=== PATIENT | male | born 1970 | race Caucasian/White ===

== ENCOUNTER 2022-08-08 22:20 | Emergency (ER) | payer BC, MEDICAID ==
[2022-08-08] MEDS ORDERED: Labetalol 100 MG Tab PO STA (23:35)
[2022-08-08] MEDS ORDERED: amLODIPine 10 MG Tab PO STA (23:36)
[2022-08-08] MEDS ORDERED: Sodium Chloride 0.9% 1,000 ML IV SCH (23:45)
[2022-08-08 23:50] VITALS: BP 134/88; PULSE 87
[2022-08-09 00:14] LABS: ESTIMATED GFR 104 mL/min (>60)
[2022-08-09] MEDS ORDERED: Potassium Chloride 20 MEQ Tab.ER PO ONE (00:27)
[2022-08-09] MEDS ORDERED: Iopamidol 612 MG/ML 100 ML Bottle IVPUSH ONE (00:51)
== END 2022-08-09 02:26 ==
LOC: JD.ED 22:20
DX: R07.89 Other chest pain (principal); R10.84 Generalized abdominal pain; G89.29 Other chronic pain; E87.6 Hypokalemia; I10 Essential (primary) hypertension; E66.9 Obesity, unspecified; Z68.30 Body mass index [BMI] 30.0-30.9, adult; Z86.16 Personal history of COVID-19
CPT/HCPCS: 36415; 71045; 74177; 80053; 81001; 83690; 84484; 85007; 85027; 93005; 96360; 96361; 99284; A9270; J7030; Q9967; 93010

== ENCOUNTER 2022-08-09 09:50 | Emergency (ER) | payer SELFPAY ==
[2022-08-09] MEDS ORDERED: PHENobarbital Sodium 65 MG/ML SDV IM ONE (10:30)
[2022-08-09 11:20] VITALS: BP 143/102; PULSE 93
== END 2022-08-09 11:16 | disposition home or self-care (01) ==
LOC: JD.ED 09:50
DX: Z76.5 Malingerer [conscious simulation] (principal); F10.10 Alcohol abuse, uncomplicated; I10 Essential (primary) hypertension; E66.9 Obesity, unspecified; Z68.41 Body mass index [BMI] 40.0-44.9, adult
CPT/HCPCS: 93005; 96372; 99284; J2560; 93010; 99283